=== PATIENT | female | born 1945 | race Caucasian/White ===

== ENCOUNTER 2016-08-12 05:39 | Inpatient (IN) | payer MEDICARE ==
[2016-08-12] MEDS ORDERED: Acetaminophen IV 1GM/100ML * 100 ML IVPB ONE (06:00)
[2016-08-12] MEDS ORDERED: Famotidine IV* 10 MG/ML 2 ML (20 mg) IV ONE (06:00)
[2016-08-12] MEDS ORDERED: Metoclopramide TAB* 10 MG PO ONE (06:00)
[2016-08-12] MEDS ORDERED: Buffered Lidocaine 1% SYR 3ML* 3 ML/SYR SYRINGE INTRADERM ONE (06:00)
[2016-08-12] MEDS ORDERED: celeCOXIB CAP* 200 MG PO ONE (06:00)
[2016-08-12] MEDS ORDERED: Famotidine IV* 10 MG/ML 2 ML (20 mg) ONE (06:23)
[2016-08-12] MEDS ORDERED: celeCOXIB CAP* 100 MG ONE (06:23)
[2016-08-12] MEDS ORDERED: Gabapentin CAP(*) 300 MG ONE (06:23)
[2016-08-12] MEDS ORDERED: ceFAZolin 2 GM PREMIX (*) 2 GM/50 ML BAG IVPB ONE (06:24)
[2016-08-12] MEDS ORDERED: Metoclopramide TAB* 10 MG ONE (06:24)
[2016-08-12] MEDS ORDERED: Buffered Lidocaine 1% SYR 3ML* 3 ML/SYR SYRINGE ONE (06:24)
[2016-08-12] MEDS ORDERED: Acetaminophen IV 1GM/100ML * 100 ML ONE (06:31)
[2016-08-12] MEDS: Gabapentin CAP(*) 300 MG PO ONE ×2 (06:35→07:12)
[2016-08-12] MEDS ORDERED: Lidocaine 2% PF* 10 ML AMP ONE (07:00)
[2016-08-12] MEDS ORDERED: Bupivacaine 0.5% SDV PF* 30 ML VIAL ONE ×2 (07:00→07:06)
[2016-08-12] MEDS ORDERED: Midazolam* 1 MG/ML 5 ML VIAL (5 MG) ONE (07:06)
[2016-08-12] MEDS ORDERED: Ketorolac INJ* 30 MG/ML 1 ML VIAL ONE (07:06)
[2016-08-12] MEDS ORDERED: Propofol* 10 MG/ML 20 ML BTL IV PUSH ONE (07:06)
[2016-08-12] MEDS ORDERED: Morphine PF AMP (0.5MG/ML)* 5 MG/10 ML AMP ONE (07:06)
[2016-08-12] MEDS ORDERED: Lidocaine 2% MPF* 2 ML VIAL ONE (07:06)
[2016-08-12] MEDS ORDERED: Dexamethasone IV* 4 MG/ML 1 ML (4 MG) ONE (07:06)
[2016-08-12] MEDS ORDERED: KETAMINE HCL* 50 MG/ML 10 ML VIAL ONE (07:06)
[2016-08-12] MEDS ORDERED: fentaNYL* 50 MCG/ML 2 ML VIAL (100 MCG VIAL) ONE (07:06)
[2016-08-12] MEDS ORDERED: Ondansetron INJ* 2 MG/ML VIAL ONE ×2 (07:06→10:02)
[2016-08-12] MEDS ORDERED: Bupivacaine 0.25% EPI 200,000* 30 ML SDV ONE (07:09)
[2016-08-12] MEDS ORDERED: Midazolam* 1 MG/ML 2 ML VIAL (2 MG) ONE (07:50)
[2016-08-12] MEDS ORDERED: Propofol* 500 MG/50 ML BTL ONE (08:02)
[2016-08-12] MEDS ORDERED: Phenylephrine IV* 40 MCG/ML 10 ML SYRINGE ONE (08:07)
[2016-08-12] MEDS ORDERED: Phenylephrine INJ* 10 MG/ML 1 ML VIAL (10 MG) ONE (08:27)
[2016-08-12] MEDS ORDERED: fentaNYL* 50 MCG/ML 2 ML VIAL (100 MCG VIAL) IV PRN (08:50)
[2016-08-12] MEDS ORDERED: oxyCODONE/Acetamin 5/325 MG* TAB PO PRN ×4 (08:50→23:45)
[2016-08-12] MEDS ORDERED: DiMENhydriNATE IV* 50 MG/ML VIAL IV PUSH PRN (08:50)
[2016-08-12] MEDS ORDERED: Ondansetron INJ* 2 MG/ML VIAL IV PRN ×3 (08:50→23:45)
[2016-08-12] MEDS ORDERED: Ketorolac INJ* 30 MG/ML 1 ML VIAL IV PRN (08:53)
[2016-08-12] MEDS ORDERED: Naloxone* 0.4 MG/ML 1 ML VIAL IV PRN (08:53)
[2016-08-12] MEDS ORDERED: diPHENhydraMINE IV* 50 MG/ML 1 ml VIAL (BENADRYL) IV PRN ×2 (08:53→10:02)
[2016-08-12] MEDS ORDERED: EPHEDrine (Pressors)* 50 MG/ML VIAL IV PUSH PRN (09:03)
[2016-08-12] MEDS ORDERED: Ropivacaine 0.2% EPIDURAL* 200 MG/100 ML BAG EPIDURAL ONE (09:43)
[2016-08-12] MEDS: Ropivacaine 0.2% EPIDURAL* 200 MG/100 ML BAG EPIDURAL SCH ×2 (10:00→22:00)
[2016-08-12] MEDS ORDERED: Polyethylene Glycol 3350* 17 GM PACKET PO PRN (10:02)
[2016-08-12] MEDS ORDERED: Bisacodyl SUPP* 10 MG SUPP PR PRN (10:02)
[2016-08-12] MEDS ORDERED: Morphine INJ* 10 MG/ML 1 ML CARPUJECT IV PRN (10:02)
[2016-08-12] MEDS ORDERED: oxyCODONE TAB* 5 MG TAB PO PRN (10:02)
[2016-08-12] MEDS ORDERED: Acetaminophen TAB* 325 MG PO PRN (10:02)
[2016-08-12] MEDS ORDERED: DiMENhydriNATE IV* 50 MG/ML VIAL ONE (10:04)
[2016-08-12] MEDS ORDERED: D5W 1/2 NS 1000 ML BAG* 1,000 ML IV SCH (11:00)
--- NOTE | 2016-08-12 11:20 | RAD ---
INDICATION: Left knee replacement surgery. TECHNIQUE: 2 views of the left knee were obtained. FINDINGS: The patient is status post total left knee replacement surgery. The bones and prostheses are in normal alignment. There is no evidence for loosening. There is air within the adjacent soft tissues consistent with the patient's recent surgery. There are multiple surgical ramon present anterior. IMPRESSION: STATUS POST TOTAL LEFT KNEE REPLACEMENT SURGERY.
[2016-08-12] MEDS ORDERED: PROCHLORPERAZINE INJ 5 MG/ML 2 ML VIAL IV PRN (12:48)
[2016-08-12] MEDS ORDERED: PROCHLORPERAZINE INJ 5 MG/ML 2 ML VIAL ONE (12:48)
[2016-08-12] MEDS ORDERED: PROCHLORPERAZINE INJ 5 MG/ML 2 ML VIAL IV ONE (13:00)
[2016-08-12] MEDS ORDERED: Metoclopramide IV* 5 MG/ML 2 ML VIAL IV ONE (14:30)
[2016-08-12] MEDS: Scopolamine 1.5 mg* PATCH TRANSDERM SCH (14:51)
[2016-08-12] MEDS ORDERED: Dextrose 50% Syringe 50 ML* 25 GM/50 ML SYRINGE IV PUSH PRN (15:38)
[2016-08-12] MEDS ORDERED: Nalbuphine* 20 MG/ML 1 ML VIAL IV PRN (16:14)
[2016-08-12] MEDS: ceFAZolin 1 GM in Dextrose (*) 1 GM/50 ML BAG IVPB SCH ×2 (16:28→23:42)
[2016-08-12] MEDS ORDERED: Warfarin TAB(*) 10 MG PO ONE ×2 (17:00→21:00)
[2016-08-12] MEDS: Insulin LISPRO* 1 UNITS UNIT SUBCUT SCH ×2 (18:38→20:56)
[2016-08-12] MEDS: Docusate CAP* 100 MG PO SCH (20:42)
[2016-08-12] MEDS: NS 0.9% 1000 ML* 1,000 ML IV SCH (21:00)
[2016-08-12] MEDS ORDERED: Insulin GLARGINE(*) 1 UNITS UNIT SUBCUT SCH ×2 (21:00)
[2016-08-12] MEDS: Magnesium Hydroxide LIQ* 30 ML UDC PO SCH (21:01)
--- NOTE | 2016-08-12 22:04 | CONS ---
CONSULTATION REPORT: DATE OF CONSULT: 08/12/16 PRIMARY CARE PHYSICIAN: Julien Cleveland DO ORTHOPEDIC SURGEON: Dr. Solitario. REASON FOR CONSULTATION: Medical management of the patient with diabetes, status post left total knee replacement. HISTORY OF PRESENT ILLNESS: Mrs. Mara Nevarez is a 70-year-old female with history of diabetes who is status post left knee replacement performed by Dr. Solitario today. It was an elective surgery. Postoperative consult was requested in regards to diabetes management. The patient has history of chronic mild bilateral ankle edema and osteoarthritis in bilateral knees. Currently, she is experiencing nausea postoperatively. PAST MEDICAL HISTORY: 1. History of diabetes type 2. 2. Osteoarthritis, bilateral knees. 3. History of degenerative disk disease. 4. History of status post cholecystectomy. 5. Appendectomy. 6. Tonsillectomy. 7. History of breast biopsy. 8. Status post pilonidal cyst removal. 9. Oophorectomy. 10. Cataract surgery bilaterally. MEDICATIONS OUTPATIENT: Included: 1. Insulin lispro sliding scale. 2. Insulin Lantus 32 units at bedtime. 3. Tramadol 50 mg b.i.d. p.r.n. 4. Glucophage 1000 mg b.i.d. 5. Ambien 5 mg at bedtime p.r.n. 6. Acetaminophen Extra Strength 500 mg b.i.d. p.r.n. FAMILY HISTORY: Positive for mother, who secondary to "old age." Father who at the age of 72 secondary to heart disease. SOCIAL HISTORY: The patient denies tobacco, alcohol, or drug use. She lives alone and she names her male friend, Howard Espinosa, as well as his sister, Phoebe Sharma, as surrogates. REVIEW OF SYSTEMS: Positive for nausea. Denies postoperative pain. All the remaining 14 systems were reviewed with the patient and were otherwise negative. PHYSICAL EXAM: Blood pressure of 111/57, heart rate of 77 and regular, respiratory rate 12, oxygen saturation 98% on 4 L of oxygen nasal cannula, temperature of 98.4. General: The patient is a 70-year-old female, who is in no acute distress. Alert, awake, oriented x3. HEENT: Head atraumatic, normocephalic. Eyes: Pupils are equal and reactive to light and accommodation. Oropharynx is clear. Mucosa moist. Neck: Supple. No JVD, no bruit bilaterally. Cardiovascular: Regular rate and rhythm. No murmur. Respiratory: Clear to auscultation bilaterally. Abdomen: Soft, nontender. Bowel sounds present in all 4 quadrants. Extremities: There is trace bilateral ankle edema. +2 pulses bilaterally. No clubbing or cyanosis. The left knee is placed in the cryo unit. Neuro Evaluation: Speech clear. Cranial nerves II through XII grossly intact. Motor strength is 5/5 bilaterally. DIAGNOSTIC STUDIES/LAB DATA: There are no current laboratory data from the past couple of days. ASSESSMENT AND PLAN: This 70-year-old female status post left total knee replacement with history of diabetes. In regards to her diabetes, the patient is going to be placed on insulin sliding scale with lispro coverage. I will also lower the dose of the patient's usual Lantus insulin for tonight due to today's nausea and place her only at 10 units instead of 32. For DVT prophylaxis, the patient was already placed on Lovenox as per primary orthopedic service. For nausea, the patient was placed on scopolamine and Zofran as per primary service. Code status. The patient's code status is full. Her surrogates are named in the social history of the above-mentioned history and physical. TIME SPENT: Overall approximately 55 minutes were spent on consultation report of this patient. Thank you very much for allowing me to see this patient in consultation. We will follow on a daily basis. CC: Julien Cleveland DO; Dr. Solitario * [id number]/[facility] #: [id number] MTDD
[2016-08-12] MEDS ORDERED: Ondansetron TAB* 4 MG PO PRN (23:45)
[2016-08-12] MEDS: Zolpidem TAB* 10 MG PO PRN (23:46)
--- NOTE | 2016-08-13 02:42 | OP ---
DATE OF OPERATION: 08/12/16 - ROOM #341 DATE OF : 49 ATTENDING SURGEON: Darien Solitario MD ASSISTANTS: 1. Amanda Watts RPA 2. Soha Freire. ANESTHESIOLOGIST: Antonino Domingo MD ANESTHESIA: Spinal and sedation. PRE-OP DIAGNOSIS: Osteoarthritis, left knee. POST-OP DIAGNOSIS: Osteoarthritis, left knee. OPERATIVE PROCEDURE: Left total knee arthroplasty. ESTIMATED BLOOD LOSS: Less than 50 cc. COMPLICATIONS: None. HARDWARE: Crystal Persona #4 femur, E tibia 10 mm polyethylene spacer, 32 mm all polyethylene patella button. SUMMARY: Mrs. Nevarez is a 70-year-old female who has been having troubles with bilateral knee pain for some time. When she first presented, the right knee was worse and she had undergone a right total knee arthroplasty. She had done well and was very interested in also having the left done. Risks of surgery such as infection, scar formation, stiffness, DVT, pulmonary embolism and the need for rehab were some of the risks discussed and she had wished to proceed. DESCRIPTION OF PROCEDURE: The patient was brought to the OR and spinal anesthesia was introduced. Flower catheter was placed and tourniquet was placed over the proximal left thigh. Total tourniquet time would be approximately 65 minutes. Left knee was prepped and then draped. Esmarch was used to exsanguinate the leg and the tourniquet was raised. Midline incision was made beginning just medial to the tibial tubercle and carried upwards to about 2-3 cm above the superior pole of the patella. Incision was carried down through the skin and subcutaneous fat. Small bleeders encountered were ligated using electrocautery. Extensor mechanism was exposed and a sharp parapatellar arthrotomy was made. Quite a bit of clear thick joint fluid was encountered. Fat pad was sharply excised and the soft tissues were sharply elevated from the medial side of the tibia. Patella measured 23 mm in thickness and a nice 10-mm cut was taken. Patella was then easily subluxated laterally and the knee was flexed up. Nice exposure to the distal femur was obtained. Step drill was used to open the femoral canal and the intramedullary guide was placed. The guide was adjusted until it was parallel with the epicondyles and posterior condyles of the femur. Guide had been set at 3 degrees as we had done the right at 5 degrees and I had to recut the femur as she was too tight on the medial side. Distal femoral cutting guide was pinned into place and the intramedullary guide was removed. Distal femoral cut was taken, it appeared a nice cut was obtained. Femur was sized and she sat nicely once again for a 4. Holes were drilled and cutting guide was placed. Using the superior drill hole , it appeared that I would notch and the cutting block was moved up by 2 mm. Using the drill hole, it seemed that I came out right in the substance of the femur and I thought I would not notch significantly. Anterior and posterior femoral cuts and the chamfer cut were taken. There was a 7-mm notch but I thought this would not be of consequence. Attention was then turned to the tibia. Step drill was used to open the tibial canal, intramedullary guide was placed. Outrigger was placed and adjusted until it appeared it would take 2 mm from the worn medial side. Proximal tibial cut was then taken. Nice cut was obtained. A 10 spacer block was placed and she came out nicely in full extension and flexed nicely as well. She was stable throughout. Tibia was sized and an E once again sat quite nicely. This was pinned into place and the proximal tibia was drilled and then punched. Attention was returned to the femur. Femoral notch cut was then finished and stud holes were drilled. Trial polyethylene was placed and she came out nicely into full extension and flexed quite easily. Patella tracked better when I held it over a little bit. Patella was sized and a 32 sat quite nicely. Holes were drilled and trial was snapped into place. With the trial in place, she tracked quite well. Her motion was also excellent as was stability. Trial instrumentation was removed and the knee was copiously pulse lavaged. Cement was being prepared. Tibia followed by femur and patella were all cemented into place. Excess cement was removed and the cement was allowed to harden. Once the cement had hardened, the knee was again searched for loose pieces of cement and a few were found. Knee was again copiously pulse lavaged and a 10-mm polyethylene was then snapped into place. She had the same wonderful motion and stability. Knee was again copiously pulse lavaged and parapatellar arthrotomy was repaired using interrupted #1 Vicryl sutures. Tourniquet was let down and no significant bleeding was encountered. The wound was again pulse lavaged and the subcutaneous tissues were reapproximated using 2-0 Vicryl. Skin was closed using ramon. Sterile dressing was applied. The patient was then awake and stable on transfer to the recovery room. [id number]/[facility] #: [id number] MTDAlex
[2016-08-13] MEDS: oxyCODONE/Acetamin 5/325 MG* TAB PO PRN ×5 (05:09→23:29)
--- NOTE | 2016-08-13 07:47 | PN ---
Subjective Date of Service: 08/13/16 Interval History: No more nausea, feels she can eat some breakfast. C/O poor pain control, slept poorly. She often has trouble with constipation. No new c/o. Objective Active Medications: Acetaminophen (Tylenol Tab*) 650 mg PO Q4H PRN PRN Reason: pain, fever Bisacodyl (Dulcolax Supp*) 10 mg FL DAILY PRN PRN Reason: constipation Dextrose (D50w Syringe 50 Ml*) 12.5 gm IV PUSH .FOR FS < 60 - SS PRN PRN Reason: FS < 60 Diphenhydramine HCl (Benadryl Iv*) 12.5 mg IV Q6H PRN PRN Reason: PRURITIS Docusate Sodium (Colace Cap*) 100 mg PO BID [facility] Last Admin: 08/12/16 20:42 Dose: 100 mg Lactated Ringer's (Lactated Ringers 500 Ml Bag*) 500 mls @ 2,000 mls/hr IV ONCE PRN PRN Reason: FOR SBP < 90 Ropivacaine (Ropivacaine 0.2% Epidural*) 200 mg in 100 mls @ 0 mls/hr EPIDURAL .PER RATE [facility]; Per Protocol PRN Reason: Protocol Last Admin: 08/12/16 22:00 Dose: 10 mls/hr Cefazolin Sodium/Dextrose (Kefzol 1 Gm In Dextrose Duplex (*)) 1 gm in 50 mls @ 200 mls/hr IVPB Q8H [facility] Stop: 08/13/16 07:44 Last Admin: 08/12/16 23:42 Dose: 200 mls/hr Sodium Chloride (Ns 0.9% 1000 Ml*) 1,000 mls @ 100 mls/hr IV PER RATE [facility] Last Admin: 08/12/16 21:00 Dose: 100 mls/hr Insulin Glargine (Lantus(*)) 22 units SUBCUT BEDTIME [facility] Insulin Human Lispro (Humalog*) 0 units SUBCUT ACHS [facility] PRN Reason: Protocol Last Admin: 08/12/16 20:56 Dose: 8 units Ketorolac Tromethamine (Toradol Inj*) 30 mg IV Q6H PRN PRN Reason: PAIN Stop: 08/13/16 08:55 Lactulose (Lactulose*) 30 ml PO Q6H PRN PRN Reason: constipation Magnesium Hydroxide (Milk Of Magnesia Liq*) 30 ml PO BID [facility] Last Admin: 08/12/16 21:01 Dose: Not Given Metformin HCl (Glucophage*) 1,000 mg PO 0800,1700 [facility] Morphine Sulfate (Morphine Inj (Syringe)*) 8 mg IV Q2H PRN PRN Reason: PAIN - BREAKTHROUGH Multivitamins (Theragran Tab*) 1 tab PO DAILY [facility] Nalbuphine HCl (Nubain*) 2 mg IV Q6H PRN PRN Reason: Nausea/Vomiting Stop: 08/13/16 08:14 Last Admin: 08/12/16 19:44 Dose: 2 mg Ondansetron HCl (Zofran Inj*) 4 mg IV Q6H PRN PRN Reason: nausea Ondansetron HCl (Zofran Tab*) 4 mg PO Q6H PRN PRN Reason: NAUSEA Oxycodone HCl (Roxycodone Tab*) 10 mg PO Q4H PRN PRN Reason: PAIN - SEVERE Oxycodone/Acetaminophen (Percocet 5/325 Tab*) 1 tab PO Q4H PRN PRN Reason: PAIN - MILD Oxycodone/Acetaminophen (Percocet 5/325 Tab*) 2 tab PO Q4H PRN PRN Reason: PAIN - MODERATE Last Admin: 08/13/16 05:09 Dose: 2 tab Pharmacy Profile Note (Scopolomine Patch Remove*) 1 note PATCH OFF Q72H [facility] Polyethylene Glycol/Electrolytes (Miralax*) 17 gm PO DAILY PRN PRN Reason: Constipation Polyethylene Glycol/Electrolytes (Miralax*) 17 gm PO 0800,2100 [facility] Scopolamine (Transderm-Scop 1.5 Mg Patch*) 1 patch TRANSDERM Q72H [facility] Last Admin: 08/12/16 14:51 Dose: 1 patch Zolpidem Tartrate (Ambien Tab*) 5 mg PO BEDTIME PRN PRN Reason: INSOMNIA Last Admin: 08/12/16 23:46 Dose: 5 mg Vital Signs 08/12/16 08/12/16 08/12/16 09:56 10:00 10:05 Temperature 98.1 F Pulse Rate 86 85 82 Respiratory 10 12 14 Rate Blood Pressure 128/72 127/83 140/72 (mmHg) O2 Sat by Pulse 99 98 97 Oximetry 01/04/2008/12/16 08/12/16 10:10 10:15 10:30 Temperature Pulse Rate 81 79 78 Respiratory 14 16 12 Rate Blood Pressure 135/74 136/72 135/71 (mmHg) O2 Sat by Pulse 96 96 98 Oximetry 08/12/16 08/12/16 08/12/16 10:45 11:00 11:15 Temperature 97.0 F Pulse Rate 76 78 77 Respiratory 10 12 12 Rate Blood Pressure 132/67 126/65 117/67 (mmHg) O2 Sat by Pulse 99 100 100 Oximetry 08/12/16 08/12/16 08/12/16 11:30 11:45 12:00 Temperature 97.0 F Pulse Rate 80 79 85 Respiratory 14 12 16 Rate Blood Pressure 121/62 118/64 127/67 (mmHg) O2 Sat by Pulse 100 100 96 Oximetry 08/12/16 08/12/16 08/12/16 12:15 12:30 12:45 Temperature Pulse Rate 76 75 75 Respiratory 12 12 12 Rate Blood Pressure 112/76 120/65 123/63 (mmHg) O2 Sat by Pulse 96 97 97 Oximetry 08/12/16 08/12/16 08/12/16 13:00 13:15 13:30 Temperature 98.2 F Pulse Rate 74 80 77 Respiratory 12 12 12 Rate Blood Pressure 113/69 115/65 116/58 (mmHg) O2 Sat by Pulse 97 94 96 Oximetry 08/12/16 08/12/16 08/12/16 13:45 14:00 14:15 Temperature 98.4 F 97.2 F Pulse Rate 79 77 65 Respiratory 12 12 14 Rate Blood Pressure 110/68 111/57 121/59 (mmHg) O2 Sat by Pulse 97 98 96 Oximetry 08/12/16 08/12/16 08/12/16 14:24 15:07 15:08 Temperature Pulse Rate 65 Respiratory 14 16 14 Rate Blood Pressure 121/59 (mmHg) O2 Sat by Pulse 96 Oximetry 08/12/16 08/12/16 08/12/16 15:50 15:53 16:00 Temperature 96.7 F Pulse Rate 78 Respiratory 16 16 16 Rate Blood Pressure 105/60 (mmHg) O2 Sat by Pulse 100 99 Oximetry 08/12/16 08/12/16 08/12/16 16:23 17:00 18:00 Temperature 97.0 F Pulse Rate 79 Respiratory 16 16 18 Rate Blood Pressure 109/58 (mmHg) O2 Sat by Pulse 99 Oximetry 08/12/16 08/12/16 08/12/16 18:50 19:00 19:44 Temperature 97.2 F Pulse Rate 80 Respiratory 16 18 16 Rate Blood Pressure 132/59 (mmHg) O2 Sat by Pulse 98 Oximetry 08/12/16 08/12/16 08/12/16 20:00 20:44 20:54 Temperature 97.1 F Pulse Rate 83 Respiratory 16 16 16 Rate Blood Pressure 122/69 (mmHg) O2 Sat by Pulse 99 Oximetry 08/12/16 08/13/16 08/13/16 23:25 03:08 04:49 Temperature 97.9 F 98.0 F Pulse Rate 79 82 Respiratory 18 16 Rate Blood Pressure 113/54 108/53 (mmHg) O2 Sat by Pulse 100 100 98 Oximetry 08/13/16 08/13/16 05:09 06:56 Temperature Pulse Rate Respiratory 16 17 Rate Blood Pressure (mmHg) O2 Sat by Pulse Oximetry Oxygen Devices in Use Now: Nasal Cannula Appearance: Alert, partly up in bed. In good spirits. Looks fairly comfortable. Eyes: No Scleral Icterus Ears/Nose/Mouth/Throat: Clear Oropharnyx, Mucous Membranes Moist Neck: NL Appearance and Movements; NL JVP, No Thyroid Enlargement, Masses Respiratory: Symmetrical Chest Expansion and Respiratory Effort, Clear to Auscultation, Clear to Percussion Cardiovascular: NL Sounds; No Murmurs; No JVD, RRR, No Edema, - Extremities: No Edema, No Clubbing, Cyanosis, - Skin: No Rash or Ulcers, No Nodules or Sclerosis, - Neurological: Alert and Oriented x 3, NL Sensation Assess/Plan/Problems-Billing Assessment: - Patient Problems (1) Type 2 diabetes mellitus Current Visit: No Status: Acute Comment: Increase Lantus to 22 U q hs. Re- start metformin. (2) S/P total knee arthroplasty Current Visit: No Status: Acute Priority: High Onset Date: 10/16/15 Code (s): Z96.659 - PRESENCE OF UNSPECIFIED ARTIFICIAL KNEE JOINT SNOMED Code(s): 7544981305458 Comment: Increase morphine to 8 m IV PRN. Start PEG.
[2016-08-13] MEDS ORDERED: Morphine INJ* 4 MG/ML 1 ML CARPUJECT ONE (07:49)
[2016-08-13] MEDS: Docusate CAP* 100 MG PO SCH ×2 (07:52→20:30)
[2016-08-13] MEDS: Vitamin THERAPEUTIC TAB PO SCH (07:52)
[2016-08-13] MEDS: NS 0.9% 1000 ML* 1,000 ML IV SCH ×2 (07:52→19:21)
[2016-08-13] MEDS: Magnesium Hydroxide LIQ* 30 ML UDC PO SCH ×2 (07:52→20:30)
[2016-08-13] MEDS: ceFAZolin 1 GM in Dextrose (*) 1 GM/50 ML BAG IVPB SCH (07:52)
[2016-08-13 08:15] LABS: Hematocrit 30 % (35-47); Hemoglobin 9.7 g/dl (12.0-16.0)
[2016-08-13 08:33] LABS: BUN/Creatinine Ratio 18.6 (8-20); Calcium 8.6 mg/dL (8.6-10.3); EGFR African American 84.4 (>60); EGFR Non-African American 65.6 (>60); Potassium 4.1 mmol/L (3.5-5.0)
[2016-08-13] MEDS: Polyethylene Glycol 3350* 17 GM PACKET PO SCH ×2 (09:21→20:36)
[2016-08-13] MEDS: metFORMIN* 1,000 MG TAB PO SCH ×2 (09:21→18:08)
[2016-08-13] MEDS: Insulin LISPRO* 1 UNITS UNIT SUBCUT SCH ×4 (09:25→20:42)
--- NOTE | 2016-08-13 10:13 | PN ---
Progress Note - Progress Note SOAP: Subjective: [Pt was seen today in bed. Pt states that she is in extreme pain this morning and is hoping that her pain medication will kick in soon. She states that she did not have this kind of pain when she had the other knee done. Pt states that she felt completely fine this morning and that once the block wore off she felt the pain intensely. Pt has just received oxycodone ] Objective: [General: pt is alert, awake and oriented. Is in pain LLE: Dressing is c/d/i. Able to move toes and dorsiflex and platerflex ankle. Cryotherapy is currently on. Sensation is intact to light touch distally. DP and PT are 2+. ] Vital Signs Temp 98.8 F 08/13/16 12:46 Pulse 99 08/13/16 12:46 Resp 16 08/13/16 13:15 BP 140/60 08/13/16 12:46 Pulse Ox 96 08/13/16 12:46 Intake & Output 08/12/16 08/13/16 08/13/16 18:59 06:59 18:59 Intake Total 4250 510 Output Total 1310 1125 Balance 2940 -615 Intake: IV Fluids 4250 LR 4000 Lactated Ringer's 200 NS 50ML, Cefazolin 2G 50 Oral 510 Output: Flower 950 1125 Emesis 360 Other: # Bowel Movements 0 Estimated Blood Loss <50mL Comment Assessment: [S/P LTKA] Plan: [Continue Ancef Continue Coumadin Continue pain medications Continue PT/OT]
[2016-08-13] MEDS ORDERED: Enoxaparin(*) 40 MG/0.4 ML SYR SUBCUT SCH (11:00)
[2016-08-13] MEDS: Morphine INJ* 10 MG/ML 1 ML CARPUJECT IV PRN ×2 (12:02→19:22)
[2016-08-13] MEDS ORDERED: Ketorolac INJ* 30 MG/ML 1 ML VIAL IV PUSH PRN (12:12)
[2016-08-13] MEDS: Heparin VIAL(*) 5000 UNITS/ML VIAL (FIVE THOUSAND) SUBCUT SCH ×2 (13:36→22:06)
[2016-08-13] MEDS: oxyCODONE TAB* 5 MG TAB PO PRN ×2 (16:17→20:43)
[2016-08-13] MEDS: Insulin GLARGINE(*) 1 UNITS UNIT SUBCUT SCH (20:31)
[2016-08-13] MEDS: Zolpidem TAB* 10 MG PO PRN (20:43)
[2016-08-14] MEDS: Ketorolac INJ* 15 MG/ML 1 ML VIAL IV PUSH PRN ×3 (03:13→17:51)
[2016-08-14] MEDS: oxyCODONE TAB* 5 MG TAB PO PRN ×4 (03:13→19:56)
[2016-08-14] MEDS: oxyCODONE/Acetamin 5/325 MG* TAB PO PRN ×3 (05:32→17:52)
[2016-08-14] MEDS: Heparin VIAL(*) 5000 UNITS/ML VIAL (FIVE THOUSAND) SUBCUT SCH ×3 (05:34→22:02)
[2016-08-14 06:23] LABS: Hematocrit 27 % (35-47); Hemoglobin 8.8 g/dl (12.0-16.0)
[2016-08-14] MEDS: Insulin LISPRO* 1 UNITS UNIT SUBCUT SCH ×4 (07:24→22:02)
[2016-08-14] MEDS: Polyethylene Glycol 3350* 17 GM PACKET PO SCH ×2 (08:05→22:03)
[2016-08-14] MEDS: Cyclobenzaprine TAB* 10 MG PO SCH ×3 (08:11→22:01)
[2016-08-14] MEDS: metFORMIN* 1,000 MG TAB PO SCH ×2 (08:11→18:02)
[2016-08-14] MEDS: Vitamin THERAPEUTIC TAB PO SCH (08:12)
[2016-08-14] MEDS: Docusate CAP* 100 MG PO SCH ×2 (08:12→22:01)
[2016-08-14] MEDS: Magnesium Hydroxide LIQ* 30 ML UDC PO SCH ×2 (08:12→22:01)
--- NOTE | 2016-08-14 12:51 | PN ---
Subjective Date of Service: 08/14/16 Interval History: Good pain relief with increased dose of morphine. Overall pain in better today. No nausea but still poor appetite. Objective Active Medications: Acetaminophen (Tylenol Tab*) 650 mg PO Q4H PRN PRN Reason: pain, fever Bisacodyl (Dulcolax Supp*) 10 mg RI DAILY PRN PRN Reason: constipation Cyclobenzaprine HCl (Flexeril Tab*) 10 mg PO TID [facility] Last Admin: 08/14/16 08:11 Dose: 10 mg Dextrose (D50w Syringe 50 Ml*) 12.5 gm IV PUSH .FOR FS < 60 - SS PRN PRN Reason: FS < 60 Diphenhydramine HCl (Benadryl Iv*) 12.5 mg IV Q6H PRN PRN Reason: PRURITIS Docusate Sodium (Colace Cap*) 100 mg PO BID [facility] Last Admin: 08/14/16 08:12 Dose: 100 mg Heparin Sodium (Porcine) (Heparin Vial(*)) 5,000 units SUBCUT Q8HR [facility] Last Admin: 08/14/16 05:34 Dose: 5,000 units Lactated Ringer's (Lactated Ringers 500 Ml Bag*) 500 mls @ 2,000 mls/hr IV ONCE PRN PRN Reason: FOR SBP < 90 Ropivacaine (Ropivacaine 0.2% Epidural*) 200 mg in 100 mls @ 0 mls/hr EPIDURAL .PER RATE [facility]; Per Protocol PRN Reason: Protocol Last Admin: 08/12/16 22:00 Dose: 10 mls/hr Sodium Chloride (Ns 0.9% 1000 Ml*) 1,000 mls @ 100 mls/hr IV PER RATE [facility] Last Admin: 08/13/16 19:21 Dose: 100 mls/hr Insulin Glargine (Lantus(*)) 22 units SUBCUT BEDTIME [facility] Last Admin: 08/13/16 20:31 Dose: 22 units Insulin Human Lispro (Humalog*) 0 units SUBCUT ACHS [facility] PRN Reason: Protocol Last Admin: 08/14/16 07:24 Dose: Not Given Ketorolac Tromethamine (Toradol Inj*) 15 mg IV PUSH Q6H PRN PRN Reason: PAIN Last Admin: 08/14/16 09:49 Dose: 15 mg Lactulose (Lactulose*) 30 ml PO Q6H PRN PRN Reason: constipation Magnesium Hydroxide (Milk Of Magnesia Liq*) 30 ml PO BID [facility] Last Admin: 08/14/16 08:12 Dose: 30 ml Metformin HCl (Glucophage*) 1,000 mg PO 0800,1700 [facility] Last Admin: 08/14/16 08:11 Dose: 1,000 mg Morphine Sulfate (Morphine Inj (Syringe)*) 8 mg IV Q2H PRN PRN Reason: PAIN - BREAKTHROUGH Last Admin: 08/13/16 19:22 Dose: 8 mg Multivitamins (Theragran Tab*) 1 tab PO DAILY [facility] Last Admin: 08/14/16 08:12 Dose: 1 tab Ondansetron HCl (Zofran Inj*) 4 mg IV Q6H PRN PRN Reason: nausea Ondansetron HCl (Zofran Tab*) 4 mg PO Q6H PRN PRN Reason: NAUSEA Oxycodone HCl (Roxycodone Tab*) 10 mg PO Q4H PRN PRN Reason: PAIN - SEVERE Last Admin: 08/14/16 11:10 Dose: 10 mg Oxycodone/Acetaminophen (Percocet 5/325 Tab*) 1 tab PO Q4H PRN PRN Reason: PAIN - MILD Oxycodone/Acetaminophen (Percocet 5/325 Tab*) 2 tab PO Q4H PRN PRN Reason: PAIN - MODERATE Last Admin: 08/14/16 09:48 Dose: 2 tab Pharmacy Profile Note (Scopolomine Patch Remove*) 1 note PATCH OFF Q72H [facility] Pharmacy Profile Note (Coumadin Daily Reminder*) 1 note FOLLOW UP 1700 [facility] Polyethylene Glycol/Electrolytes (Miralax*) 17 gm PO DAILY PRN PRN Reason: Constipation Polyethylene Glycol/Electrolytes (Miralax*) 17 gm PO 0800,2100 [facility] Last Admin: 08/14/16 08:05 Dose: Not Given Scopolamine (Transderm-Scop 1.5 Mg Patch*) 1 patch TRANSDERM Q72H [facility] Last Admin: 08/12/16 14:51 Dose: 1 patch Warfarin Sodium (Coumadin Tab(*)) 8 mg PO ONCE@1700 ONE PRN Reason: Protocol Stop: 08/14/16 17:01 Zolpidem Tartrate (Ambien Tab*) 5 mg PO BEDTIME PRN PRN Reason: INSOMNIA Last Admin: 08/13/16 20:43 Dose: 5 mg Vital Signs 08/13/16 08/13/16 08/13/16 13:02 13:15 14:20 Temperature Pulse Rate Respiratory 16 16 Rate Blood Pressure (mmHg) O2 Sat by Pulse 92 Oximetry 08/13/16 08/13/16 08/13/16 15:15 16:17 16:44 Temperature 98.9 F Pulse Rate 97 Respiratory 16 16 16 Rate Blood Pressure 133/61 (mmHg) O2 Sat by Pulse 96 Oximetry 08/13/16 08/13/16 08/13/16 18:15 18:17 19:22 Temperature Pulse Rate Respiratory 16 16 17 Rate Blood Pressure (mmHg) O2 Sat by Pulse Oximetry 08/13/16 08/13/16 08/13/16 19:47 20:00 20:15 Temperature 99.0 F Pulse Rate 94 Respiratory 16 17 16 Rate Blood Pressure 111/75 (mmHg) O2 Sat by Pulse 95 Oximetry 08/13/16 08/13/16 08/13/16 20:22 20:43 22:43 Temperature Pulse Rate Respiratory 16 16 16 Rate Blood Pressure (mmHg) O2 Sat by Pulse Oximetry 08/13/16 08/14/16 08/14/16 23:29 00:17 01:29 Temperature 98.3 F Pulse Rate 97 Respiratory 17 16 16 Rate Blood Pressure 122/52 (mmHg) O2 Sat by Pulse 97 Oximetry 08/14/16 08/14/16 08/14/16 02:25 03:13 03:21 Temperature 98.4 F Pulse Rate 92 Respiratory 17 16 Rate Blood Pressure 128/46 (mmHg) O2 Sat by Pulse 95 90 Oximetry 08/14/16 08/14/16 08/14/16 05:13 05:32 07:15 Temperature Pulse Rate Respiratory 16 16 18 Rate Blood Pressure (mmHg) O2 Sat by Pulse Oximetry 08/14/16 08/14/16 08/14/16 07:32 07:43 08:00 Temperature 98.6 F Pulse Rate 91 Respiratory 18 18 18 Rate Blood Pressure 127/63 (mmHg) O2 Sat by Pulse 90 90 Oximetry 08/14/16 08/14/16 08/14/16 08:11 09:15 09:48 Temperature Pulse Rate Respiratory 18 18 18 Rate Blood Pressure (mmHg) O2 Sat by Pulse Oximetry 08/14/16 08/14/16 08/14/16 10:11 11:10 11:22 Temperature Pulse Rate Respiratory 18 18 18 Rate Blood Pressure (mmHg) O2 Sat by Pulse Oximetry 08/14/16 12:45 Temperature 98.0 F Pulse Rate 94 Respiratory 18 Rate Blood Pressure 131/67 (mmHg) O2 Sat by Pulse 92 Oximetry Oxygen Devices in Use Now: Nasal Cannula Appearance: Alert, in a chair. In good spirits. Looks comfortable. Eyes: No Scleral Icterus Skin: No Rash or Ulcers, No Nodules or Sclerosis, - Neurological: Alert and Oriented x 3, NL Sensation Result Diagrams: 08/14/16 06:02 08/13/16 07:56 Assess/Plan/Problems-Billing Assessment: - Patient Problems (1) Type 2 diabetes mellitus Current Visit: No Status: Acute Comment: Continue Lantus 22 U q hs, metformin. Adequate glycemic control Continue FS checks with SSI. (2) S/P total knee arthroplasty Current Visit: No Status: Acute Priority: High Onset Date: 10/16/15 Code (s): Z96.659 - PRESENCE OF UNSPECIFIED ARTIFICIAL KNEE JOINT SNOMED Code(s): 7412757040276 Comment: Continue morphine 8 mg IV PRN. Continue PEG.
[2016-08-14] MEDS ORDERED: Warfarin TAB(*) 4 MG PO ONE (17:00)
[2016-08-14] MEDS: Insulin GLARGINE(*) 1 UNITS UNIT SUBCUT SCH (22:02)
[2016-08-15] MEDS: Heparin VIAL(*) 5000 UNITS/ML VIAL (FIVE THOUSAND) SUBCUT SCH ×2 (06:06→14:14)
[2016-08-15 06:10] LABS: Hematocrit 30 % (35-47); Hemoglobin 9.7 g/dl (12.0-16.0)
[2016-08-15] MEDS: Docusate CAP* 100 MG PO SCH (09:01)
[2016-08-15] MEDS: metFORMIN* 1,000 MG TAB PO SCH (09:01)
[2016-08-15] MEDS: Vitamin THERAPEUTIC TAB PO SCH (09:01)
[2016-08-15] MEDS: Cyclobenzaprine TAB* 10 MG PO SCH ×2 (09:01→14:16)
[2016-08-15] MEDS: Insulin LISPRO* 1 UNITS UNIT SUBCUT SCH ×2 (09:04→12:56)
[2016-08-15] MEDS: oxyCODONE/Acetamin 5/325 MG* TAB PO PRN (09:32)
[2016-08-15 09:52] LABS: Urine Bilirubin Negative (Negative); Urine Glucose Negative (Negative); Urine Nitrite Negative (Negative)
[2016-08-15] MEDS: Polyethylene Glycol 3350* 17 GM PACKET PO SCH (09:52)
[2016-08-15] MEDS: Magnesium Hydroxide LIQ* 30 ML UDC PO SCH (09:53)
[2016-08-15] MEDS ORDERED: Fluconazole 100 MG TAB* TAB PO ONE (10:37)
[2016-08-15 12:15] VITALS: BP 135/61
[2016-08-15] MEDS: oxyCODONE TAB* 5 MG TAB PO PRN (12:19)
[2016-08-15] MEDS: Scopolamine 1.5 mg* PATCH TRANSDERM SCH (14:22)
[2016-08-15] MEDS ORDERED: Scopolamine PATCH Remove* 1 NOTE MISC PATCH OFF SCH (14:59)
--- NOTE | 2016-08-18 14:12 | DS ---
DISCHARGE SUMMARY: DATE OF ADMISSION: 08/12/16 DATE OF DISCHARGE: 08/15/16 PROVIDER: Dr. Darien Solitario. CHIEF COMPLAINTS: 1. Right knee end-stage osteoarthritis. 2. Lyme disease. 3. Type 2 diabetes. 4. Bilateral osteoarthritis of the knees. 5. Degenerative disk disease. DISCHARGE DIAGNOSES: 1. Status post right total knee arthroplasty. 2. Lyme disease. 3. Type 2 diabetes. 4. Osteoarthritis, left knee. 5. Degenerative disk disease. CURRENT PROCEDURE: Right total knee arthroplasty. CONSULTATIONS: 1. Physical Therapy. 2. Occupational Therapy. 3. Medicine. BRIEF HISTORY: Mrs. Nevarez is a very pleasant 70-year-old female with a longstanding history of right knee end-stage osteoarthritis who has elected to undergo a knee replacement on 08/12/[address] Solitario. HOSPITAL COURSE: The patient was admitted to the [facility] on 08/12, where she underwent a right total knee arthroplasty. Postoperatively, she recovered in the short-stay unit. On postoperative day 2, her Flower was discontinued and she was able to urinate on her own. She was advanced to a regular diet without difficulty and her pain was controlled with Percocet. She was able to weightbear as tolerated on the right lower extremity and she advanced appropriately with Physical Therapy and Occupational Therapy. Her DVT prophylaxis was managed with Coumadin and Lovenox. The patient was discharged with continued Coumadin and Lovenox dose. By postoperative day 3, she was orthopedically and medically stable for discharge to Rehab. PHYSICAL EXAMINATION: General: Well-appearing, no acute distress. Alert and oriented x3. Vital signs on the date of discharge, temp 97.6, pulse rate 117, respirations 18, oxygen saturation 95% on room air, blood pressure 135/61. Examination of the right lower extremity demonstrated a surgical excision on the knee that was benign without erythema, drainage or visual signs of infection. [place] were intact. Sterile dressing was applied. She had active ankle dorsiflexion and plantarflexion with 2+ palpable posterior tibial pulses. Sensation was intact to bilateral lower extremities. DIAGNOSTIC STUDIES/LAB DATA: H and H is 9.7 and 30 with an INR of 1.07. Negative urinalysis on date of discharge. DISCHARGE MEDICATIONS: 1. Cyclobenzaprine 10 mg p.o. t.i.d. p.r.n. 2. Dulcolax sodium 100 mg p.o. b.i.d. 3. Lovenox 40 mg subcu injection q.24 hours. 4. Ambien 5 mg tablet q.h.s. p.r.n. 5. Metformin 100 mg p.o. b.i.d. 6. Percocet 5/325 one to two tablets every 4 hours as needed for pain. 7. Tramadol 50 mg tablet 1 tablet as needed b.i.d. 8. Insulin glargine 32 units subcu at bedtime. 9. Insulin lispro sliding scale with meals. CONDITION ON DISCHARGE: Stable. DISCHARGE INSTRUCTIONS: Mrs. Nevarez is a very pleasant 70-year-old female postoperative day 3, status post right total knee arthroplasty, which was uncomplicated. She is orthopedically and medically stable for discharge to [facility]. Her labs and vital signs are stable. She will restart her home medications. She will take Coumadin as directed, however, will continue Lovenox until she reaches a therapeutic INR level. She will have a INR levels withdrawn on Friday's and 's by visiting home nurses. She will remain weightbearing as tolerated on the right lower extremity. She will have physical therapy at the rehab facility and she will take Percocet for pain control. She will take Colace up to 3 times a day for constipation. She will followup with Dr. Solitario in approximately 1 month and will have her incision checked by the nursing staff with stitches to be removed in approximately 10 days. She was instructed to go immediately to the ER should she develop chest pain or shortness of breath. If she develops fever, increasing pain, or redness around the incision site, she is to call the office immediately. CLAUDY CABALLERO [id number]/[facility] #: [id number] JASON
== END 2016-08-15 14:45 | DRG 470 ==
LOC: AA 05:39 → SSU 14:36
PROVIDERS: ADMIT Orthopaedic Surgery; ATTEND Orthopaedic Surgery
PROC: 0SRD0J9 Replacement of Left Knee Joint with Synthetic Substitute, Cemented, Open Approach (ICD-10-PCS; principal; 2016-08-12 07:30)
DX: M17.12 Unilateral primary osteoarthritis, left knee (principal); A69.20 Lyme disease, unspecified; E11.9 Type 2 diabetes mellitus without complications; R35.1 Nocturia; Z96.651 Presence of right artificial knee joint; R11.0 Nausea; E78.5 Hyperlipidemia, unspecified; Z90.49 Acquired absence of other specified parts of digestive tract; Z98.42 Cataract extraction status, left eye; Z98.41 Cataract extraction status, right eye; Z90.721 Acquired absence of ovaries, unilateral; Z88.5 Allergy status to narcotic agent; Z88.2 Allergy status to sulfonamides; Z88.8 Allergy status to other drugs, medicaments and biological substances; Z83.3 Family history of diabetes mellitus; Z82.49 Family history of ischemic heart disease and other diseases of the circulatory system; Z80.0 Family history of malignant neoplasm of digestive organs; Z87.891 Personal history of nicotine dependence; Z79.01 Long term (current) use of anticoagulants; Z79.4 Long term (current) use of insulin
CPT/HCPCS: 36415; 80048; 81003; 85014; 85018; 85610; 88305; 88311; 94760; A9270-GY; C1776; J0690; J0780; J1100; J1240; J1644; J1885; J2001; J2250; J2270; J2300; J2405; J2704; J2765; J2795; J3010